=== PATIENT | female | born 1955 | race Caucasian/White ===

== ENCOUNTER 2018-04-18 07:50 | Observation (INO) | payer BC ==
[~2018-04-18] VITALS: Ht 160 cm; Wt 72.0 kg
[2018-04-18 08:37] LABS: HEMATOCRIT 39.8 % (36.0-46.0); HEMOGLOBIN 13.5 G/DL (11.9-15.5); MCH 31.7 PG (29.0-34.0); MCHC 33.9 G/DL (30.0-36.0); MCV 93.4 FL (83-99); PLATELET COUNT 309 K/uL (156-360); RBC DIS.WIDTH-CV 13.1 % (11.8-14.6); RBC DIS.WIDTH-SD 44.8 % (39-53); RED BLOOD COUNT 4.26 M/uL (3.80-5.20)
[2018-04-18 08:51] LABS: CHLORIDE 105 mEq/L (99-109); POTASSIUM 4.6 mEq/L (3.7-5.4); SODIUM 138 mEq/L (136-147)
[2018-04-18 08:53] LABS: GLUCOSE 109 mg/dL (70-99)
[2018-04-18 08:57] LABS: CREATININE 0.9 mg/dL (0.6-1.3); GFR ESTIMATE (CALCULATED) > 59 mL/min/
[2018-04-18 08:58] LABS: UREA NITROGEN (BUN) 14 mg/dL (9-23)
[2018-04-18 09:00] LABS: TROP-I INTERPRETATION NEGATIVE; TROPONIN-I 0.01 ng/mL (0.0-0.30)
[2018-04-18] MEDS ORDERED: MAXALT10 MG PO (09:50)
[2018-04-18 11:50] LABS: HDL CHOLESTEROL 57 MG/DL (Desirable>=50); LDL CHOLESTEROL 135 mg/dL (Desirable<100); NON-HDL CHOLESTEROL 147 mg/dL (Desirable<160); TOTAL CHOLESTEROL 204 mg/dL (Desirable<200); TRIGLYCERIDES 61 MG/DL (Normal: <150)
[2018-04-18 11:51] VITALS: BP 141/77
[2018-04-18 15:17] VITALS: BP 144/70
[2018-04-18 15:40] LABS: TROP-I INTERPRETATION NEGATIVE; TROPONIN-I < 0.01 ng/mL (0.0-0.30)
[2018-04-18 19:06] VITALS: BP 123/74
[2018-04-18] MEDS ORDERED: ASPIR-LOW81 MG PO (20:36)
[2018-04-18] MEDS ORDERED: LIPITOR80 MG PO (20:37)
[2018-04-18] MEDS ORDERED: NITROSTAT0.4 MG SL (20:38)
[2018-04-18 21:08] LABS: TROP-I INTERPRETATION NEGATIVE; TROPONIN-I < 0.01 ng/mL (0.0-0.30)
== END 2018-04-18 21:33 | disposition home or self-care (01) ==
LOC: EME 07:50 → EDOF 10:32 → ENRESERV 10:32 → 4SOUTH 11:35
PROVIDERS: Emergency Medicine; Nurse Practitioner Adult Health
DX: R07.9 Chest pain, unspecified (principal); E78.5 Hyperlipidemia, unspecified; G43.909 Migraine, unspecified, not intractable, without status migrainosus; Z82.49 Family history of ischemic heart disease and other diseases of the circulatory system; F17.210 Nicotine dependence, cigarettes, uncomplicated; I10 Essential (primary) hypertension; E66.3 Overweight; Z88.8 Allergy status to other drugs, medicaments and biological substances
CPT/HCPCS: 71045; 80048; 80061; 83036; 83880; 84484; 85027; 93005; 99281; 99285; G0378; J1650